=== PATIENT | male | born 1985 | race Caucasian/White ===

== ENCOUNTER 2018-02-05 09:33 | Emergency (ER) | payer SELFPAY ==
[~2018-02-05] VITALS: Ht 154.9 cm; Wt 79.4 kg
[~2018-02-05 09:33] MED LIST: ALBUTEROL0.09 MG/A2 IH; AMOXIL500 MG PO; MEDROL DOSEPAK4 MG PO; NKHM; SUDAFED60 MG PO; VENTOLIN H0.09 MG/AC INH; ZYRTEC10 MG PO
[2018-02-05] MEDS ORDERED: CEPHALEXIN500 M1 PO (11:14)
[2018-02-05] MEDS ORDERED: IBUPROFEN600 MG PO (11:14)
== END 2018-02-05 11:10 | disposition home or self-care (01) ==
LOC: ED 09:33
DX: I88.9 Nonspecific lymphadenitis, unspecified (principal); Z88.6 Allergy status to analgesic agent; Z90.89 Acquired absence of other organs

== ENCOUNTER 2019-03-26 12:53 | Emergency (ER) | payer SELFPAY ==
[~2019-03-26] VITALS: Ht 177.8 cm; Wt 77.1 kg
[~2019-03-26 12:53] MED LIST changes: +CEPHALEXIN500 M1 PO; +IBUPROFEN600 MG PO
[2019-03-26 14:02] LABS: BASO # 0.1 10*3/uL (0.0-0.1); BASO % 0.8 % (0.0-1.0); EOS # 0.1 10*3/uL (0.0-0.4); EOS % 0.8 % (1.0-4.0); HEMATOCRIT 50.1 % (42.0-52.0); HEMOGLOBIN 17.2 g/dl (14.0-18.0); LYMPH # 1.9 10*3/uL (1.3-4.4); LYMPH % 30.4 % (27.0-41.0); MEAN CELL VOLUME 93.8 fl (80.0-94.0); MEAN CORPUSCULAR HGB 32.2 pg (27.0-31.0); MEAN CORPUSCULAR HGB CONC 34.3 g/dl (33.0-37.0); MEAN PLATELET VOLUME 9.9 fl (9.6-12.3); MONO # 0.6 10*3/uL (0.1-1.0); MONO % 9.4 % (3.0-9.0); NEUT # 3.7 10*3/uL (2.3-7.9); NEUT % 58.3 % (47.0-73.0); PLATELET COUNT AUTOMATED 216 10*3/uL (130-400); RED BLOOD COUNT 5.34 10*6/uL (4.50-5.90); RED CELL DISTRI WIDTH 12.4 % (0-14.5); WHITE BLOOD COUNT 6.3 10*3/uL (4.8-10.8)
[2019-03-26 14:12] LABS: ACT PARTIAL THROMBO TIME 30.7 SECONDS (20.0-32.1); INTERNATIONAL NORM RATIO 0.9 (2.0-3.5)
[2019-03-26 14:19] LABS: ALKALINE PHOSPHATASE 107 U/L (45-117); BUN 14 mg/dl (7-24); CHLORIDE 105 mmol/L (98-107); CREATININE 1.08 mg/dL (0.70-1.30); POTASSIUM 3.8 mmol/L (3.5-5.1); SGOT/AST 60 IU/L (3-35); SGPT/ALT 120 U/L (12-78); SODIUM 137 mmol/L (136-145); TROPONIN I < 0.015 ng/ml (<0.045)
[2019-03-26] MEDS ORDERED: ZOFRAN4 MG PO (15:13)
== END 2019-03-26 15:20 | disposition home or self-care (01) ==
LOC: ED 12:53
PROVIDERS: Emergency Medicine
DX: J06.9 Acute upper respiratory infection, unspecified (principal)